=== PATIENT | female | born 1980 | race Native Hawaiian/Other Pacific Islander ===

== ENCOUNTER 2018-01-09 09:02 | Emergency (ER) | payer BC ==
[2018-01-09 09:04] VITALS: BMI 22.1
[2018-01-09] MEDS ORDERED: Naproxen 500 MG TAB PO STA (09:51)
--- NOTE | 2018-01-09 10:15 | ED PDOC ---
HPI: Back Time Seen by Provider: 01/09/18 09:45 Chief Complaint (Nursing): Back Pain Chief Complaint (Provider): Back pain History Per: Patient History/Exam Limitations: no limitations Onset/Duration Of Symptoms: Days (x2 weeks) Current Symptoms Are (Timing): Still Present Quality Of Discomfort: "Pain" Associated Symptoms: Other (cough) Additional Complaint(s): Aruna Heller is a 37 year old female, with a past medical history of asthma, who was brought to the emergency department by EMS complaining of intermittent mid back pain, radiating across back onset for x2 weeks but progressively worst this morning. Patient has been coughing secondary to asthma and attributed her pain to persistent coughing. She denies any shortness of breath, fever, chills, heavy lifting, no injury or trauma. No further medical complaints. PMD: None provided. Past Medical History Reviewed: Historical Data, Nursing Documentation, Vital Signs Vital Signs: Last Vital Signs Temp 97.3 F L 01/09/18 09:04 Pulse 81 01/09/18 09:04 Resp 20 01/09/18 09:04 BP 111/76 01/09/18 09:04 Pulse Ox 100 01/09/18 09:04 - Medical History PMH: Asthma - Surgical History Surgical History: No Surg Hx - Family History Family History: States: No Known Family Hx - Social History Current smoker - smoking cessation education provided: No Alcohol: None Drugs: Denies - Home Medications Home Medications: Ambulatory Orders Medication Instructions Recorded Cyclobenzaprine [Cyclobenzaprine 10 mg PO Q8 #10 tab 01/09/18 HCl] Naproxen [Naprosyn] 500 mg PO Q12H #20 tab 01/09/18 - Allergies Allergies/Adverse Reactions: Allergies Allergy/AdvReac Type Severity Reaction Status Date / Time No Known Allergies Allergy Verified 01/09/18 09:22 Review of Systems ROS Statement: Except As Marked, All Systems Reviewed And Found Negative Constitutional: Negative for: Fever, Chills, Other (trauma or heavy lifting) Respiratory: Positive for: Cough. Negative for: Shortness of Breath Musculoskeletal: Positive for: Back Pain (mid) Physical Exam - Reviewed Nursing Documentation Reviewed: Yes Vital Signs Reviewed: Yes - Physical Exam Appears: Positive for: Non-toxic, No Acute Distress Head Exam: Positive for: ATRAUMATIC, NORMOCEPHALIC Skin: Positive for: Normal Color, Warm, Dry Eye Exam: Positive for: Normal appearance, EOMI, PERRL Neck: Positive for: Painless ROM Cardiovascular/Chest: Positive for: Regular Rate, Rhythm. Negative for: Murmur Respiratory: Positive for: Normal Breath Sounds (equal breath sounds b/l and clear to auscultation). Negative for: Wheezing, Respiratory Distress Gastrointestinal/Abdominal: Positive for: Normal Exam, Soft. Negative for: Tenderness Back: Positive for: Other (b/l parathoracic tenderness and spasm. No midline spinal tenderness). Negative for: Vertebral Tenderness Extremity: Positive for: Normal ROM (all extremities). Negative for: Deformity , Swelling Neurologic/Psych: Positive for: Alert, Oriented. Negative for: Motor/Sensory Deficits (no focal deficits) - ECG O2 Sat by Pulse Oximetry: 100 (RA) Pulse Ox Interpretation: Normal Medical Decision Making Medical Decision Making: Initial Plan: --Urine --Urine dipstick --Chest two views (PA/LAT) [RAD] --Naproxen 500 mg PO --Reevaluation Scribe Attestation: Documented by Dg Moon, acting as a scribe for Kalen Mera MD Provider Scribe Attestation: All medical record entries made by the Scribe were at my direction and personally dictated by me. I have reviewed the chart and agree that the record accurately reflects my personal performance of the history, physical exam, medical decision making, and the department course for this patient. I have also personally directed, reviewed, and agree with the discharge instructions and disposition. Disposition - Clinical Impression Clinical Impression: Musculoskeletal pain - Patient ED Disposition Is Patient to be Admitted: No Counseled Patient/Family Regarding: Studies Performed, Diagnosis, Need For Followup, Rx Given - Disposition [facility]errals: [facility]] Disposition: Routine/Home Disposition Time: 10:29 Condition: FAIR Prescriptions: Cyclobenzaprine [Cyclobenzaprine HCl] 10 mg PO Q8 #10 tab Naproxen [Naprosyn] 500 mg PO Q12H #20 tab Instructions: Muscle Strain (DC) Forms: [employer] ([place]i)
[2018-01-09] MEDS ORDERED: Naproxen 500 MG TAB PO ONE (10:28)
[2018-01-09 11:20] VITALS: BP 128/76; PULSE 78; RESP 18; TEMP 97; O2SAT 98
--- NOTE | 2018-01-09 11:38 | RAD ---
HISTORY: no COMPARISON: No prior. TECHNIQUE: Chest PA and lateral FINDINGS: LUNGS: No active pulmonary disease. PLEURA: No significant pleural effusion identified. No pneumothorax apparent. CARDIOVASCULAR: Normal. OSSEOUS STRUCTURES: No significant abnormalities. VISUALIZED UPPER ABDOMEN: Normal. OTHER FINDINGS: None. IMPRESSION: No active disease.
== END 2018-01-09 11:20 | disposition home or self-care (01) ==
LOC: H.ER 09:02
DX: M79.1 Myalgia (principal); J45.909 Unspecified asthma, uncomplicated